=== PATIENT | male | born 1990 | race Two or more races ===

== ENCOUNTER 2016-11-07 20:22 | Emergency (ER) | payer OTHER ==
[~2016-11-07] VITALS: Ht 180.3 cm; Wt 109.3 kg
--- NOTE | ~2016-11-07 | CR142 ---
[facility] A Service of [facility] & [facility] RADIOLOGY TEXT RESULTS PATIENT: SUGAR PALUMBO LOCATION: SED : 86 UNIT #: [id number] AGE: [address]: SOTERO VALENTINE SEX: M ORDER DR: [id number] [place] [id number] E MR#: [id number] Acc #: [id number] NAME: SUGAR PALUMBO : 1990 SEX: M STUDY DATE/TIME: 11/07/2016 21:00 UNIT: SED ROOM: STUDY DESCRIPTION: CR Hand Min 3 Views Rt Attending Physician: Sotero Valentine Ordering Physician: Sotero Valentine MEDICAL IMAGING REPORT This report is preliminary unless electronic signature is present. EXAM Right hand series, 11/07/2016 HISTORY Possible foreign body in the palm/wrist of the right hand for the last four days. Trauma. FINDINGS Three views of the right hand were obtained. AP, lateral, and oblique projections of the hand show good mineralization with normal carpal, metacarpal, and phalangeal anatomy without indication of fracture, dislocation, or soft tissue radiopaque foreign body. There is no radiopaque foreign body. IMPRESSION Normal right hand. Dictated by... Niya Flowers M.D. THIS IS AN ELECTRONICALLY VERIFIED REPORT Niya Flowers M.D. at 11/09/2016 7:32 PM CPR/tomeka TD: 11/08/2016 10:31 JOB #: [id number] MEDICAL IMAGING REPORT Page 1 of 1
[2016-11-07 22:35] LABS: BASOPHIL# 0.1 X10e3 (0-0.3); BASOPHIL% 0.8 % (0-2.5); EOSINOPHIL# 0.4 X10e3 (0-0.7); EOSINOPHIL% 3.2 % (0.0-7.0); HEMATOCRIT 45.4 % (38.0-50.0); LYMPHOCYTE# 2.8 X10e3 (1.0-3.5); LYMPHOCYTE% 25.3 % (17.0-45.0); MEAN CELL VOLUME 83.4 FL (83-96); MEAN CORPUSCULAR HEMOGLOBIN 27.5 PG (28-34); MEAN PLATELET VOLUME 9.4 FL (6.5-11.5); MONOCYTE# 0.7 X10e3 (0-1.0); MONOCYTE% 6.4 % (3.0-12.0); NEUTROPHIL# 7.1 X10e3 (1.5-7.1); NEUTROPHIL% 64.3 % (40-75); PLATELET COUNT 230 X10e3 (140-420); RED BLOOD COUNT 5.44 X10e (3.90-5.60); WHITE BLOOD COUNT 11.1 X10e3 (4.0-10.5)
[2016-11-07 22:38] LABS: DIFF IND NO
[2016-11-07 22:46] LABS: ALBUMIN SERUM 4.6 g/dL (3.5-5.0); BILIRUBIN,TOTAL 0.6 mg/dL (0.2-2.0); CALCIUM SERUM 8.8 mg/dL (8.4-10.2); POTASSIUM 3.8 mmol/L (3.5-5.1); PROTEIN TOTAL SERUM 7.7 g/dL (6.0-8.3)
== END 2016-11-08 00:14 | disposition home or self-care (01) ==
LOC: SED 20:22
PROVIDERS: Nurse Practitioner
DX: S61.431A Puncture wound without foreign body of right hand, initial encounter (principal); F17.210 Nicotine dependence, cigarettes, uncomplicated; W22.8XXA Striking against or struck by other objects, initial encounter; Y92.69 Other specified industrial and construction area as the place of occurrence of the external cause
CPT/HCPCS: 36415; 73130; 80053; 85025; 96365; 96366; 99283